=== PATIENT | male | born 1985 | race Caucasian/White ===

== ENCOUNTER 2018-06-02 10:14 | Emergency (ER) | payer MEDICAID ==
[~2018-06-02] VITALS: Ht 175.3 cm; Wt 56.8 kg
[2018-06-02] MEDS ORDERED: HALOPERIDOL 5 MG TABLET PO ONE (13:30)
[2018-06-02] MEDS ORDERED: DiphenhydrAMINE HCL 25 MG CAPSULE PO ONE (13:30)
[2018-06-02 13:44] VITALS: BP 116/80
== END 2018-06-02 13:51 | disposition home or self-care (01) ==
LOC: EMS 10:16
DX: T16.1XXA Foreign body in right ear, initial encounter (principal); F20.9 Schizophrenia, unspecified; F17.210 Nicotine dependence, cigarettes, uncomplicated; F12.90 Cannabis use, unspecified, uncomplicated; F19.10 Other psychoactive substance abuse, uncomplicated; X58.XXXA Exposure to other specified factors, initial encounter; Y93.89 Activity, other specified; Y92.89 Other specified places as the place of occurrence of the external cause; Y99.8 Other external cause status
CPT/HCPCS: 69200; 99406